=== PATIENT | female | born 1960 | race Caucasian/White ===

== ENCOUNTER 2018-09-29 01:12 | Emergency (ER) | payer OTHER ==
[~2018-09-29] VITALS: Ht 162.6 cm; Wt 65.8 kg
--- NOTE | 2018-09-29 01:23 | PHYS DOC ---
Past Medical History Past Medical History: Anxiety, High Cholesterol Past Surgical History: Appendectomy, Hysterectomy Alcohol Use: Rarely Drug Use: None Adult General Chief Complaint Chief Complaint: FLANK PAIN HPI HPI Patient is 58 yo female w/ PMH anxiety and high cholesterol who presents with complaint of R sided back and periumbilical pain since 020Monday morning. She reports she was initially able to control the pain with ibuprofen, however it has steadily worsened. She says she called the ED earlier today to see if she should come in, and they told her to come to ED if symptoms worsen, which is why she is here. She is unable to identify anything that makes the pain worse. She works at [employer] but does not remember any lifting or moving that caused the pain. She also reports nausea, vomiting, and chest "tightness". Her last bowel movement was 0800 Monday morning and she has passed gas since. She denies burning with urination, blood in urine, or foul smelling urine. Does admit to feeling as though she is not urinating as often. She denies shortness of breath , chest pain, diarrhea, joint/muscle pain or swelling, She denies recent travel. Reports having hysterectomy with PO estrogen replacement and appendectomy but no recent surgeries. PCP is Bradly. Review of Systems Review of Systems Constitutional: Denies fever or chills [] Eyes: Denies change in visual acuity, redness, or eye pain [] HENT: Denies nasal congestion or sore throat [] Respiratory: Denies cough or shortness of breath [] Cardiovascular: Denies chest pain or palpitations GI: Reports abdominal pain, nausea, and vomiting; denies diarrhea [] : Denies dysuria or hematuria [] Musculoskeletal: Reports back pain; denies joint pain [] Integument: Denies rash or skin lesions [] Neurologic: Denies headache, focal weakness or sensory changes [] Complete systems were reviewed and found to be within normal limits, except as documented in this note. Current Medications Current Medications Current Medications Medications (Trade) Dose Ordered Sig/Evelin Start Time Stop Time Status Last Admin Dose Admin Aspirin (Owen Aspirin) 325 mg 1X ONCE 09/29/18 02:00 09/29/18 02:02 DC 09/29/18 02:08 325 MG Fentanyl Citrate (Fentanyl 2ml Vial) 50 mcg 1X ONCE 09/29/18 03:45 09/29/18 03:46 DC 09/29/18 03:46 50 MCG Ketorolac Tromethamine (Toradol 30mg Vial) 15 mg 1X ONCE 09/29/18 01:45 09/29/18 01:46 DC 09/29/18 01:43 15 MG Metoclopramide HCl (Reglan Vial) 10 mg 1X ONCE 09/29/18 01:45 09/29/18 01:45 DC Ondansetron HCl (Zofran) 4 mg 1X ONCE 09/29/18 04:00 09/29/18 04:01 DC 09/29/18 04:05 4 MG Sodium Chloride 1,000 ml @ 1,000 mls/hr 1X ONCE 09/29/18 02:15 09/29/18 03:14 DC 09/29/18 01:43 1,000 MLS/HR Allergies Allergies Allergies Coded Allergies Type Severity Reaction Last Updated Verified No Known Drug Allergies 06/29/16 No Physical Exam Physical Exam Constitutional: Well developed, well nourished, no acute distress, non-toxic appearance. [] HENT: Normocephalic, atraumatic, oropharynx moist, no oral exudates, nose normal. [] Eyes: EOMI, conjunctiva normal, no discharge. [] Neck: Normal range of motion, supple Cardiovascular: Heart rate regular rhythm, no murmur [] Lungs & Thorax: Bilateral breath sounds clear to auscultation [] Abdomen: Soft, mild RLQ tenderness on palpation Skin: Warm, dry, no erythema, no rash. [] Back: right CVA tenderness. [] Extremities: No tenderness, ROM intact, no edema. [] Neurologic: Alert and oriented X 3, normal motor function, normal sensory function, no focal deficits noted. [] Psychologic: Affect normal, judgement normal, mood normal. [] Current Patient Data Vital Signs Vital Signs Date Time Temp Pulse Resp B/P (MAP) Pulse Ox O2 Delivery O2 Flow Rate FiO2 09/29/18 04:16 16 99 Room Air 09/29/18 03:45 58 136/60 (85) 09/29/18 01:25 98.4 98.4 Lab Values Laboratory Tests Test 09/29/18 01:17 09/29/18 01:35 Urine Collection Type Unknown Urine Color Yellow Urine Clarity Cloudy Urine pH 5.5 Urine Specific Grady 1.025 Urine Protein Negative mg/dL (NEG-TRACE) Urine Glucose (UA) Negative mg/dL (NEG) Urine Ketones (Stick) Negative mg/dL (NEG) Urine Blood Small (NEG) Urine Nitrite Negative (NEG) Urine Bilirubin Negative (NEG) Urine Urobilinogen Dipstick 0.2 mg/dL (0.2 mg/dL) Urine Leukocyte Esterase Negative (NEG) Urine RBC Occ /HPF (0-2) Urine WBC 5-10 /HPF (0-4) Urine Squamous Epithelial Cells Mod /LPF Urine Bacteria Many /HPF (0-FEW) Urine Mucus Marked /LPF White Blood Count 8.4 x10^3/uL (4.0-11.0) Red Blood Count 4.62 x10^6/uL (3.50-5.40) Hemoglobin 13.8 g/dL (12.0-15.5) Hematocrit 41.3 % (36.0-47.0) Mean Corpuscular Volume 89 fL (79-100) Mean Corpuscular Hemoglobin 30 pg (25-35) Mean Corpuscular Hemoglobin Concent 33 g/dL (31-37) Red Cell Distribution Width 13.6 % (11.5-14.5) Platelet Count 257 x10^3/uL (140-400) Neutrophils (%) (Auto) 58 % (31-73) Lymphocytes (%) (Auto) 33 % (24-48) Monocytes (%) (Auto) 6 % (0-9) Eosinophils (%) (Auto) 2 % (0-3) Basophils (%) (Auto) 1 % (0-3) Neutrophils # (Auto) 4.9 x10^3uL (1.8-7.7) Lymphocytes # (Auto) 2.8 x10^3/uL (1.0-4.8) Monocytes # (Auto) 0.5 x10^3/uL (0.0-1.1) Eosinophils # (Auto) 0.1 x10^3/uL (0.0-0.7) Basophils # (Auto) 0.1 x10^3/uL (0.0-0.2) Sodium Level 142 mmol/L (136-145) Potassium Level 3.9 mmol/L (3.5-5.1) Chloride Level 105 mmol/L (98-107) Carbon Dioxide Level 28 mmol/L (21-32) Anion Gap 9 (6-14) Blood Urea Nitrogen 18 mg/dL (7-20) Creatinine 1.0 mg/dL (0.6-1.0) Estimated GFR (Cockcroft-Gault) 57.1 BUN/Creatinine Ratio 18 (6-20) Glucose Level 105 mg/dL (70-99) H Calcium Level 9.6 mg/dL (8.5-10.1) Magnesium Level 2.2 mg/dL (1.8-2.4) Total Bilirubin 0.6 mg/dL (0.2-1.0) Aspartate Amino Transferase (AST) 18 U/L (15-37) Alanine Aminotransferase (ALT) 26 U/L (14-59) Alkaline Phosphatase 39 U/L (46-116) L Creatine Kinase 70 U/L (26-192) Creatine Kinase MB (Mass) 0.8 ng/mL (0.0-3.6) Creatine Kinase MB Relative Index % (0-4) Troponin I Quantitative < 0.017 ng/mL (0.000-0.055) Total Protein 7.9 g/dL (6.4-8.2) Albumin 3.9 g/dL (3.4-5.0) Albumin/Globulin Ratio 1.0 (1.0-1.7) Lipase 119 U/L (73-393) Laboratory Tests 09/29/18 01:35 Laboratory Tests 09/29/18 01:35 Microbiology 09/29/18 Urine Culture - Final, Complete 09/29/18 Urine Culture Result 1 (SAAD) - Final, Complete EKG EKG @0159; HR 64; Sinus rhythm with T wave inversions lead III. [] Radiology/Procedures Radiology/Procedures [PROCEDURE: CT ABDOMEN PELVIS WO CONTRAST Examination: CT of the abdomen pelvis without contrast HISTORY: History of right flank pain COMPARISON: None available TECHNIQUE: Axial CT images of the abdomen pelvis were performed without contrast. Coronal and sagittal reformats are performed Exposure: One or more of the following individualized dose reduction techniques were utilized for this examination: 1. Automated exposure control 2. Adjustment of the mA and/or kV according to patient size 3. Use of iterative reconstruction technique FINDINGS: Minimal right lung base atelectasis. No evidence of free air identified in the abdomen. The visualized noncontrasted liver, spleen, adrenals grossly appears unremarkable. The gallbladder is mildly distended. The stomach is mildly distended. The visualized pancreas grossly appears unremarkable. The small bowel is nondilated. Feces and gas noted in the colon. Few sigmoid colon diverticulosis identified. The appendix is not well-visualized. No evidence of intrarenal collecting system calculi or hydronephrosis. Multiple calcified pelvic phleboliths identified which limits evaluation of the distal ureters. No evidence of lytic bony destructive lesion IMPRESSION: 1. No acute intra-abdominal findings. Electronically signed by: Curt Joshi MD (09/29/2018 2:52 AM) [facility] ] Course & Med Decision Making Course & Med Decision Making Patient is 58 yo female w/ PMH anxiety and high cholesterol who presents with R sided back and periumbilical abdominal pain since 0200 yesterday morning. Patient also reports to chest tightness but admits she thinks it is d/t anxiety. On physical exam patient is mildly hypertensive, not tachycardic, 99% RA, resting comfortably in bed. Abdomen is soft, mildly tender to palpation, with normoactive bowel sounds. Remainder of physical exam unremarkable. EKG revealed sinus rhythm, HR 64 bpm, with inverted T waves in lead III. Labs reveal small amt blood in urine, CBC and CMP unremarkable. Troponin and CKMB WNL. CT abdomen/pelvis reveal mildly distended gallbladder but otherwise no acute intraabdominal pathology. CT reading did indicate difficulty visualizing distal ureters. Patient treated with aspirin, toradol, NS, reglan with moderate symptomatic relief. Upon reassessment patient complained of pain returning, which was treated with fentanyl and subsequently zofran for nausea. Discussed with patient that because EKG and lab work WNL this is likely not cardiac in nature. Also spoke with patient that although imaging does not show current stone, it is possible that patient has passed a kidney stone with continued ureter agitation causing symptoms. Discussed plan to dc to home w/ orphenadrine w/ instructions to follow up w/ PCP (Dr. Bradly MD) and GI specialist (Dr. Greer MD). Both patient and voiced agreement and understanding with the plan. Dragon Disclaimer Dragon Disclaimer This electronic medical record was generated, in whole or in part, using a voice recognition dictation system. Departure Departure Impression: Primary Impression: Flank pain Disposition: 01 HOME, SELF-CARE Condition: STABLE Referrals: HALLE FERREIRA MD (PCP) ASHLEY DIMAS MD Patient Instructions: Flank Pain, [id number] Scripts Orphenadrine Citrate (ORPHENADRINE CITRATE) 100 Mg Tablet.er 100 MG PO BID PRN for MUSCLE PAIN, #14 Prov: JOSE SCHAEFER DO 09/29/18 JOSE SCHAEFER DO Sep 29, 2018 01:23
[2018-09-29 01:40] LABS: BILIRUBIN,URINE NEGATIVE (NEG); CLARITY,URINE CLOUDY; COLOR,URINE YELLOW; NITRITE,URINE NEGATIVE (NEG); PH,URINE 5.5; PROTEIN,URINE NEGATIVE (NEG-TRACE); UROBILINOGEN,URINE 0.2 mg/dL (0.2 mg/dL)
[2018-09-29 01:45] LABS: RBC,URINE OCC /HPF (0-2)
[2018-09-29] MEDS ORDERED: KETOROLAC 30 MG/ML VIAL. IV ONE (01:45)
[2018-09-29] MEDS ORDERED: METOCLOPRAMIDE HCL 10 MG/2 ML VIAL. IV ONE (01:45)
[2018-09-29 01:46] LABS: BACTERIA,URINE MANY /HPF (0-FEW); SQUAMOUS EPITHELIAL CELL,UR MOD /LPF
[2018-09-29 01:46] LABS: BASO # 0.1 x10^3/uL (0.0-0.2); BASO % 1 % (0-3); EOS # 0.1 x10^3/uL (0.0-0.7); EOS % 2 % (0-3); HEMATOCRIT 41.3 % (36.0-47.0); HEMOGLOBIN 13.8 g/dL (12.0-15.5); LYMPH # 2.8 x10^3/uL (1.0-4.8); LYMPH % 33 % (24-48); MEAN CORPUSCULAR HEMOGLOBIN 30 pg (25-35); MEAN CORPUSCULAR HGB CONC 33 g/dL (31-37); MEAN CORPUSCULAR VOLUME 89 fL (79-100); MONO # 0.5 x10^3/uL (0.0-1.1); MONO % 6 % (0-9); NEUT # 4.9 x10^3uL (1.8-7.7); NEUT % 58 % (31-73); PLATELET COUNT 257 x10^3/uL (140-400); RED BLOOD COUNT 4.62 x10^6/uL (3.50-5.40); RED CELL DISTRIBUTION WIDTH 13.6 % (11.5-14.5); WHITE BLOOD COUNT 8.4 x10^3/uL (4.0-11.0)
[2018-09-29 01:54] LABS: CALCIUM 9.6 mg/dL (8.5-10.1); GFR 57.1; POTASSIUM 3.9 mmol/L (3.5-5.1)
[2018-09-29 02:00] LABS: ALBUMIN 3.9 g/dL (3.4-5.0); MAGNESIUM 2.2 mg/dL (1.8-2.4); TOTAL BILIRUBIN 0.6 mg/dL (0.2-1.0); TOTAL PROTEIN 7.9 g/dL (6.4-8.2)
[2018-09-29] MEDS ORDERED: ASPIRIN 325 MG TABLET PO ONE (02:00)
[2018-09-29] MEDS ORDERED: IV NORMAL SALINE 1000ML BAG 1,000 ML IV ONE (02:15)
--- NOTE | 2018-09-29 02:56 | RAD ---
Examination: CT of the abdomen pelvis without contrast HISTORY: History of right flank pain COMPARISON: None available TECHNIQUE: Axial CT images of the abdomen pelvis were performed without contrast. Coronal and sagittal reformats are performed Exposure: One or more of the following individualized dose reduction techniques were utilized for this examination: 1. Automated exposure control 2. Adjustment of the mA and/or kV according to patient size 3. Use of iterative reconstruction technique FINDINGS: Minimal right lung base atelectasis. No evidence of free air identified in the abdomen. The visualized noncontrasted liver, spleen, adrenals grossly appears unremarkable. The gallbladder is mildly distended. The stomach is mildly distended. The visualized pancreas grossly appears unremarkable. The small bowel is nondilated. Feces and gas noted in the colon. Few sigmoid colon diverticulosis identified. The appendix is not well-visualized. No evidence of intrarenal collecting system calculi or hydronephrosis. Multiple calcified pelvic phleboliths identified which limits evaluation of the distal ureters. No evidence of lytic bony destructive lesion IMPRESSION: 1. No acute intra-abdominal findings. Electronically signed by: Curt Joshi MD (09/29/2018 2:52 AM) [facility]
[2018-09-29 03:45] VITALS: BP 136/60
[2018-09-29] MEDS ORDERED: fentaNYL PF VIAL 100 MCG/2 ML VIAL IV ONE (03:45)
[2018-09-29] MEDS ORDERED: ONDANSETRON PF 4 MG/2 ML VIAL. IV ONE (04:00)
[2018-09-29 04:05] LABS: CREATINE KINASE 70 U/L (26-192)
[2018-09-29] MEDS ORDERED: ORPH100T PO (04:24)
--- NOTE | 2018-09-30 10:28 | EKG ---
[facility] [address] [place] [address] Test Date: 2018-09-29 Test Time: 01:59:57 Pat Name: KASHIF LOPEZ Department: Room: Gender: F [employer]: : 1960 Requested By: JOSE SCHAEFER Order Number: [id number] Reading MD: Measurements Intervals [place] Rate: 63 P: 18 NV: 146 QRS: 24 QRSD: 82 T: 2 QT: 410 QTc: 427 Interpretive Statements SINUS RHYTHM NON SPECIFIC T ABNORMALITY BORDERLINE ECG No previous ECG available for comparison
== END 2018-09-29 04:25 | disposition home or self-care (01) ==
LOC: ER 01:12
DX: R10.33 Periumbilical pain (principal); R11.2 Nausea with vomiting, unspecified; R07.89 Other chest pain; E78.00 Pure hypercholesterolemia, unspecified; Z90.89 Acquired absence of other organs; Z90.710 Acquired absence of both cervix and uterus
CPT/HCPCS: 36415; 74176; 80053; 81001; 82553; 83690; 83735; 84484; 85025; 87086; 93005; 96374; 96375; 99284; J1885; J2405; J3010; J7030